=== PATIENT | female | born 1940 | race Caucasian/White ===

== ENCOUNTER 2017-05-12 15:46 | Emergency (ER) | payer MEDICARE, BC ==
[~2017-05-12] VITALS: Ht 167.6 cm; Wt 55.0 kg
[2017-05-12 15:50] VITALS: BP 110/60
== END 2017-05-12 18:09 | disposition left against medical advice (07) ==
LOC: ER 15:52
DX: R05 Cough (principal); R09.81 Nasal congestion; Z53.21 Procedure and treatment not carried out due to patient leaving prior to being seen by health care provider